=== PATIENT | male | born 1975 | race African-American/Black ===

== ENCOUNTER 2024-09-20 14:04 | Inpatient (IN) | payer BC ==
[2024-09-20 15:01] VITALS: BMI 20.2
[2024-09-20] MEDS ORDERED: DICYCLOMINE HCL 10 MG CAPSULE PO PRN (15:56)
[2024-09-20] MEDS ORDERED: LOPERAMIDE HCL 2 MG CAPSULE PO PRN (15:56)
[2024-09-20] MEDS ORDERED: guaiFENesin 600 MG TABLET.ER (FP) PO PRN (15:56)
[2024-09-20] MEDS ORDERED: ONDANSETRON *ODT* 4 MG TABLET SL PRN (15:56)
[2024-09-20] MEDS ORDERED: IBUPROFEN 600 MG TABLET (FP) PO PRN (15:56)
[2024-09-20] MEDS ORDERED: BENZOCAINE/MENTHOL (CHLORASEPTIC ) LOZENGE MM PRN (15:56)
[2024-09-20] MEDS ORDERED: ACETAMINOPHEN 325 MG TABLET (FP) PO PRN (15:56)
[2024-09-20] MEDS ORDERED: IBUPROFEN 400 MG TABLET (FP) PO PRN (15:56)
[2024-09-20] MEDS ORDERED: MAG HYDROX/AL HYDROX/SIMETH 30 ML UNIT-DOSE CUP PO PRN (15:56)
[2024-09-20] MEDS ORDERED: NICOTINE POLACRILEX 2 MG LOZENGE BC PRN (15:56)
[2024-09-20] MEDS ORDERED: BENZONATATE 200 MG CAPSULE PO PRN (15:56)
[2024-09-20] MEDS ORDERED: POLYETHYLENE GLYCOL (HEALTHYLAX) 3350 17 GM PACKET PO PRN (15:56)
[2024-09-20] MEDS ORDERED: NALOXONE (NARCAN) HCL 4 MG/0.1 ML SPRAY NS PRN (15:56)
[2024-09-20] MEDS ORDERED: P-EPHED 60MG/TRIPROLIDI 2.5MG TABLET PO PRN (15:56)
[2024-09-20] MEDS ORDERED: MAGNESIUM HYDROX 2400MG/30ML ORAL SUSPENSION 30 ML CUP PO PRN (15:56)
[2024-09-20] MEDS ORDERED: BISMUTH SUBSALICYLATE 524 MG/30 ML PO PRN (15:56)
[2024-09-20] MEDS: NICOTINE POLACRILEX 2 MG GUM BUC PRN (18:52)
[2024-09-20] MEDS: THIAMINE 100 MG TABLET PO SCH (21:45)
[2024-09-20] MEDS: METHOCARBAMOL 500 MG TABLET PO PRN (21:45)
[2024-09-20] MEDS: MELATONIN 5 MG TABLETS PO SCH (21:45)
[2024-09-20] MEDS: hydrOXYzine PAMOATE 25 MG CAPSULE (FP) PO PRN (21:45)
[2024-09-21] MEDS ORDERED: chlordiazePOXIDE HCL 25 MG CAPSULE PO PRN (09:25)
[2024-09-21] MEDS: chlordiazePOXIDE HCL 25 MG CAPSULE PO SCH (10:25)
[2024-09-21] MEDS: PRENATAL VITAMINS W/ FOLIC ACID TABLET (FP) PO SCH (10:27)
[2024-09-21 13:22] LABS: HEMATOCRIT 40.6 % (35.4-49); HEMOGLOBIN 13.8 GM/dL (11.7-16.9); MCH 32.3 pg (25.7-33.7); MEAN CELL VOLUME 94.9 fl (80-96); MEAN PLT VOLUME 11.3 fl (7.5-11.1); PLATELET COUNT 129 10^3/uL (134-434); RBC 4.28 M/mm3 (4.00-5.60); WHITE BLOOD COUNT 3.1 K/mm3 (4.0-10.0)
[2024-09-21 14:23] LABS: POTASSIUM 3.8 mmol/L (3.5-5.1)
[2024-09-21 14:25] LABS: ALBUMIN 3.2 g/dl (3.4-5.0); CALCIUM 9.2 mg/dL (8.5-10.1)
[2024-09-21 14:26] LABS: BLOOD UREA NITROGEN 15.8 mg/dL (7-18)
[2024-09-21 14:30] LABS: BILIRUBIN,TOTAL 0.6 mg/dL (0.2-1); TOT PROT 5.9 g/dl (6.4-8.2)
[2024-09-21 21:04] VITALS: TEMP 97.7
[2024-09-22] MEDS: chlordiazePOXIDE HCL 25 MG CAPSULE PO SCH (05:54)
[2024-09-22 06:23] VITALS: BP 109/68; PULSE 60; RESP 17
[2024-09-22] MEDS: NALOXONE (NYS OPIOID OVERDOSE PROGRAM) 4 MG/0.1 ML SPRAY NS SCH (08:45)
[2024-09-23] MEDS ORDERED: chlordiazePOXIDE HCL 10 MG CAPSULE PO SCH (05:00)
[2024-09-24] MEDS ORDERED: chlordiazePOXIDE HCL 10 MG CAPSULE PO SCH (05:00)
[2024-09-25] MEDS ORDERED: chlordiazePOXIDE HCL 10 MG CAPSULE PO ONE (05:00)
== END 2024-09-22 09:44 | disposition home or self-care (01) | DRG 775 ==
LOC: YASAS 14:04 → Y6N 17:51
PROVIDERS: ADMIT Allergy & Immunology; ATTEND Surgery
PROC: HZ2ZZZZ Detoxification Services for Substance Abuse Treatment (ICD-10-PCS; principal; 2024-09-20)
DX: F10.230 Alcohol dependence with withdrawal, uncomplicated (principal); F17.213 Nicotine dependence, cigarettes, with withdrawal; F10.282 Alcohol dependence with alcohol-induced sleep disorder; Z56.0 Unemployment, unspecified; Z59.00 Homelessness unspecified
CPT/HCPCS: 36415; 80053; 80305; 80307; 85027; 86780; 93005; 93010

== ENCOUNTER 2025-01-12 14:14 | Inpatient (IN) | payer BC ==
[2025-01-12 14:33] VITALS: BMI 21.9
[2025-01-12] MEDS ORDERED: diazePAM 5 MG TABLET PO PRN (14:57)
[2025-01-12] MEDS ORDERED: hydrOXYzine PAMOATE 25 MG CAPSULE (FP) PO PRN (14:57)
[2025-01-12] MEDS ORDERED: guaiFENesin 600 MG TABLET.ER (FP) PO PRN (14:57)
[2025-01-12] MEDS ORDERED: METHOCARBAMOL 500 MG TABLET PO PRN (14:57)
[2025-01-12] MEDS ORDERED: LOPERAMIDE HCL 2 MG CAPSULE PO PRN (14:57)
[2025-01-12] MEDS ORDERED: MAG HYDROX/AL HYDROX/SIMETH 30 ML UNIT-DOSE CUP PO PRN (14:57)
[2025-01-12] MEDS ORDERED: BISMUTH SUBSALICYLATE 524 MG/30 ML PO PRN (14:57)
[2025-01-12] MEDS ORDERED: POLYETHYLENE GLYCOL (HEALTHYLAX) 3350 17 GM PACKET PO PRN (14:57)
[2025-01-12] MEDS ORDERED: BENZOCAINE/MENTHOL (CHLORASEPTIC ) LOZENGE MM PRN (14:57)
[2025-01-12] MEDS ORDERED: MAGNESIUM HYDROX 2400MG/30ML ORAL SUSPENSION 30 ML CUP PO PRN (14:57)
[2025-01-12] MEDS ORDERED: BENZONATATE 200 MG CAPSULE PO PRN (14:57)
[2025-01-12] MEDS ORDERED: DICYCLOMINE HCL 10 MG CAPSULE PO PRN (14:57)
[2025-01-12] MEDS ORDERED: IBUPROFEN 400 MG TABLET (FP) PO PRN (14:57)
[2025-01-12] MEDS ORDERED: ONDANSETRON *ODT* 4 MG TABLET SL PRN (14:57)
[2025-01-12] MEDS: diazePAM 5 MG TABLET PO SCH (17:51)
[2025-01-12] MEDS: THIAMINE 100 MG TABLET PO SCH (22:33)
[2025-01-12] MEDS: MELATONIN 5 MG TABLETS PO SCH (22:33)
[2025-01-13] MEDS: PRENATAL VITAMINS W/ FOLIC ACID TABLET (FP) PO SCH (10:32)
[2025-01-13] MEDS: NICOTINE 21 MG/24 HOURS TOPICAL PATCH TD SCH (10:33)
[2025-01-13] MEDS: IBUPROFEN 600 MG TABLET (FP) PO PRN (10:35)
[2025-01-13] MEDS: NALOXONE (NARCAN) HCL 4 MG/0.1 ML SPRAY NS PRN (18:16)
[2025-01-14] MEDS: diazePAM 5 MG TABLET PO SCH (05:47)
[2025-01-14 21:14] VITALS: RESP 16
[2025-01-14] MEDS: NICOTINE POLACRILEX 2 MG GUM BUC PRN (21:48)
[2025-01-14] MEDS: ACETAMINOPHEN 325 MG TABLET (FP) PO PRN (21:51)
[2025-01-15] MEDS: diazePAM 5 MG TABLET PO SCH (05:50)
[2025-01-15 08:44] VITALS: BP 117/79; PULSE 70; TEMP 97.6
[2025-01-15 10:00] LABS: BASO % 0.4 % (0-2.0); EOS % 4.4 % (0-4.5); HEMATOCRIT 39.9 % (35.4-49); LYMPH % 54.1 % (8-40); MCH 31.8 pg (25.7-33.7); MCHC 32.5 g/dl (32.0-35.9); MEAN CELL VOLUME 97.6 fl (80-96); MEAN PLT VOLUME 12.4 fl (7.5-11.1); MONO % 12.7 % (3.8-10.2); NEUT % 28.4 % (42.8-82.8); PLATELET COUNT 108 10^3/uL (134-434); RBC 4.09 M/mm3 (4.00-5.60); RDW 13.3 % (11.9-15.9); WHITE BLOOD COUNT 3.8 K/mm3 (4.0-10.0)
[2025-01-15 10:24] LABS: POTASSIUM 3.9 mmol/L (3.5-5.1)
[2025-01-15 10:26] LABS: ALBUMIN 3.5 g/dl (3.4-5.0); BLOOD UREA NITROGEN 14.3 mg/dL (7-18); CALCIUM 8.6 mg/dL (8.5-10.1)
[2025-01-15 10:29] LABS: CREATININE 0.9 mg/dL (0.55-1.3)
[2025-01-15 10:30] LABS: BILIRUBIN,TOTAL 0.5 mg/dL (0.2-1)
[2025-01-15 10:31] LABS: TOT PROT 6.4 g/dl (6.4-8.2)
[2025-01-16] MEDS ORDERED: diazePAM 5 MG TABLET PO ONE (06:00)
== END 2025-01-15 11:20 | disposition home or self-care (01) | DRG 775 ==
LOC: YASAS 14:14 → Y6N 16:22
PROVIDERS: ADMIT Allergy & Immunology; ATTEND Allergy & Immunology
PROC: HZ2ZZZZ Detoxification Services for Substance Abuse Treatment (ICD-10-PCS; principal; 2025-01-12)
DX: F10.230 Alcohol dependence with withdrawal, uncomplicated (principal); F17.210 Nicotine dependence, cigarettes, uncomplicated; R76.11 Nonspecific reaction to tuberculin skin test without active tuberculosis
CPT/HCPCS: 36415; 80053; 80305; 80307; 85025; 86480; 86780; 93005; 93010